=== PATIENT | female | born 1990 | race Two or more races ===

== ENCOUNTER 2016-08-01 02:12 | Emergency (ER) | payer OTHER ==
[2016-08-01 03:15] LABS: ABSOLUTE NEUTROPHIL COUNT 7.2 K/mm3 (1.8-7.7); BASO # 0.1 K/mm3 (0.0-0.2); BASO % 0.5 % (0.2-1.0); EOS # 0.4 (0.0-0.5); EOS % 3.5 % (0.9-2.9); HEMATOCRIT 41.9 % (37.0-47.0); HEMOGLOBIN 13.4 gm/l (12.0-16.0); IMM NEUT% 0.3 % (0-1); LYMPH # 2.6 (1.0-4.8); LYMPH % 23.6 % (15-45); MEAN CELL VOLUME 95.4 fl (81.0-99.0); MEAN CORPUSCULAR HEMOGLOBIN 30.5 pg (27.0-31.0); MEAN PLATELET VOLUME 11.6 fl (7.4-10.4); MONO # 0.8 (0.0-0.8); MONO % 6.9 % (4-12); NEUT % 65.2 % (43-75); PLATELET COUNT 272 K/mm3 (130-400); RED CELL DISTRIBUTION WIDTH 12.8 % (11.5-14.5)
[2016-08-01 03:16] LABS: URINE BILIRUBIN NEGATIVE (NEGATIVE); URINE BLOOD NEGATIVE (NEGATIVE); URINE GLUCOSE (UA) NEGATIVE (NEGATIVE); URINE LEUKOCYTE ESTERASE 1+ (NEGATIVE); URINE NITRITE NEGATIVE (NEGATIVE); URINE PROTEIN NEGATIVE (NEGATIVE); URINE UROBILINOGEN NORMAL (0-1 mg/dl)
[2016-08-01 03:18] LABS: URINE APPEARANCE HAZY; URINE COLOR LIGHT YELLOW
[2016-08-01 03:26] LABS: HCG,QUALITATIVE URINE NEGATIVE
[2016-08-01 03:28] LABS: ALB/GLOB RATIO 1.2 (>1.0); ALBUMIN 4.2 gm/dL (3.5-5.7); CALCIUM 9.5 mg/dL (8.6-10.3)
[2016-08-01] MEDS ORDERED: ONDANSETRON 4 MG/2ML 2 ML VIAL ONE (03:30)
[2016-08-01 03:31] LABS: URINE BACTERIA RARE; URINE RBC 0-1 /hpf
[2016-08-01] MEDS ORDERED: HYDROMORPHONE HCL 1 MG/ML SYRINGE ONE (03:31)
--- NOTE | 2016-08-01 07:47 | US ---
LIMITED ABDOMINAL ULTRASOUND HISTORY: Right upper quadrant pain. Limited sonography of the right upper quadrant performed. Correlation against 07/14/2016 FINDINGS: GALLBLADDER LENGTH: 12.8 cm. GALLBLADDER WALL THICKNESS: 2.5 mm. GALLBLADDER CONTENT: Multiple mobile gallstones measuring up to 1.4 cm in size. SONOGRAPHIC WISE'S SIGN: Not elicited. COMMON BILE DUCT CALIBER: 3.9 mm. REGIONAL FREE FLUID: None. IMPRESSION: Distended gallbladder with features of cholelithiasis. No wall thickening, biliary dilatation, or free fluid noted. Preliminary report relayed to the Emergency Medicine medical service by Dr. Luna on 08/01/2016 at 0424 hours.
== END 2016-08-01 05:43 | disposition home or self-care (01) ==
LOC: ED 02:12
DX: K80.20 Calculus of gallbladder without cholecystitis without obstruction (principal)
CPT/HCPCS: 83690; 81025; 85025; 87086; 80053; 81001; 76705; 96375; 99283 ×2; 96374; J1170; J2405

== ENCOUNTER 2016-08-30 07:35 | Day surgery (SDC) | payer MEDICAID, OTHER ==
[2016-08-30] MEDS ORDERED: LACTATED RINGERS 1,000 ML ONE ×2 (07:54→12:59)
[2016-08-30] MEDS ORDERED: IV START KIT ONE (07:54)
[2016-08-30] MEDS ORDERED: METRONIDAZOLE 500 MG/NS 100 ML 500 MG in Premix (NS) 100 ml 1 EACH IV PRN (08:36)
[2016-08-30] MEDS ORDERED: LACTATED RINGERS 1,000 ML IV SCH ×3 (08:36→12:32)
[2016-08-30] MEDS ORDERED: LIDOCAINE 1% 2 ML VIAL ID PRN (08:36)
[2016-08-30] MEDS ORDERED: CEFUROXIME SODIUM 1.5 GRAM 1.5 G in Premix (Water) 50 ml 1 EACH IV PRN (08:36)
[2016-08-30] MEDS ORDERED: CEFUROXIME SODIUM 1.5 GRAM 50 ML IV ONE (09:15)
[2016-08-30] MEDS ORDERED: METRONIDAZOLE 500 MG/NS 100 ML 100 ML IV ONE (09:17)
[2016-08-30 09:44] LABS: ALB/GLOB RATIO 1.3 (>1.0); ALBUMIN 3.8 gm/dL (3.5-5.7); CALCIUM 8.7 mg/dL (8.6-10.3)
[2016-08-30] MEDS ORDERED: LIDOCAINE 1%/EPI 1:100,000 (MULTI DOSE) 30 ML VIAL ONE (10:21)
[2016-08-30] MEDS ORDERED: FENTANYL 100 MCG/2 ML VIAL ONE (10:25)
[2016-08-30] MEDS ORDERED: ONDANSETRON 4 MG/2ML 2 ML VIAL ONE (10:34)
[2016-08-30] MEDS ORDERED: PROPOFOL 20 ML IV ONE (10:34)
[2016-08-30] MEDS ORDERED: HYDROMORPHONE HCL 2 MG/ML SYRINGE ONE ×2 (10:34→10:35)
[2016-08-30] MEDS ORDERED: ROCURONIUM BROMIDE 10 MG/ML DOSE IV ONE (10:34)
[2016-08-30] MEDS ORDERED: METOCLOPRAMIDE HCL 5 MG/ML 2ML VIAL ONE (10:34)
[2016-08-30] MEDS ORDERED: ATROPINE SULFATE 0.4 MG/1 ML VIAL IV PRN (10:54)
[2016-08-30] MEDS ORDERED: MORPHINE SULFATE 4 MG/ML SYRINGE IV PRN (10:54)
[2016-08-30] MEDS ORDERED: NALOXONE HCL 0.4 MG/ML VIAL IV PRN (10:54)
[2016-08-30] MEDS ORDERED: LABETALOL HCL 5 MG/ML 20ML VIAL IV PRN (10:54)
[2016-08-30] MEDS ORDERED: PROMETHAZINE HCL 25 MG/ML VIAL IM PRN (10:54)
[2016-08-30] MEDS ORDERED: ONDANSETRON 4 MG/2ML 2 ML VIAL IV PRN ×2 (10:54→12:32)
[2016-08-30] MEDS ORDERED: MEPERIDINE 25 MG/ML SYRINGE IV PRN (10:54)
[2016-08-30] MEDS ORDERED: KETOROLAC TROMETHAMINE 30 MG/ML 1 ML VIAL ONE (11:37)
--- NOTE | 2016-08-30 11:47 | PCMBPN ---
Brief Post Op Note: Date of Procedure: 08/30/16 Preoperative Diagnosis: 1. Chronic cholecystitis with cholelithiasis Postoperative Diagnosis: 1. Same Procedure: laparoscopic cholecystectomy Surgeon: Zahida Mustafa MD Assist:Beverly Oviedo Anesthesia: GETA Findings: see dictation Condition: stable Complications: none IV Fluids: see anesthesia report Urine Output: not recorded Estimated Blood Loss: 5 mLs Tourniquet Time: N/A Specimens: gallbladder Implants: n/a Drains: [N/A]
[2016-08-30] MEDS ORDERED: PROMETHAZINE HCL 25 MG/ML VIAL ONE (12:05)
[2016-08-30] MEDS ORDERED: OXYCODONE/ACETAMINOPHEN 5/325 MG TABLET PO PRN (12:32)
[2016-08-30] MEDS: HYDROMORPHONE HCL 1 MG/ML SYRINGE IV PRN ×2 (12:37→13:03)
[2016-08-30] MEDS ORDERED: OXYCODONE/ACETAMINOPHEN 5/325 MG TABLET ONE (13:15)
--- NOTE | 2016-08-30 17:51 | OP ---
GLORY ACKERMAN [id number] : 1990 DATE OF PROCEDURE: August 30, 2016 PREOPERATIVE DIAGNOSIS: Chronic cholecystitis with cholelithiasis. POSTOPERATIVE DIAGNOSIS: Chronic cholecystitis with cholelithiasis. PROCEDURE PEFORMED: LAPAROSCOPIC CHOLECYSTECTOMY. SURGEON: Zahida Mustafa M.D. ANESTHESIA: General. SENIOR CLINICAL SAS PROGRAMMER: Albina Tamez FINDINGS: Gallbladder with signs of acute and chronic inflammation. Gallstone stuck in the cystic duct and had to dissect a little below that to get the cystic duct divided below it. TECHNIQUE: The patient was brought back to the operating room and placed under general anesthesia. The abdomen was prepped and draped in sterile surgical fashion. Local anesthetic was placed to the right of the umbilicus and a #15 blade scalpel was used to make a less than 1 cm transverse incision. A 5 mm port with a zero degree scope and insufflation was used to slowly enter the abdomen looking at all the abdominal wall layers as we went. When we entered the abdomen, insufflation pushed the abdominal contents away. There was no damage to organs on entry. We switched to a 30 degree scope and then placed an 11 mm port subxiphoid and two 5 mm ports in the right upper quadrant laterally, all this under direct visualization. I then grasped the gallbladder and pushed it superiorly and then placed another grasper on the neck of the gallbladder and used it for retraction. There were some adhesions that I had to take down and in order to get the neck into good view. I had to decompress the gallbladder with an aspirating needle. Once that was done, the neck came up into better view, and I could see the cystic duct better. I dissected out the cystic artery first. This went right up into the gallbladder. It was right next to the lymph node. Once it was dissected completely around, I was able to get two clips proximally and one distally, and I was able to divide that with EndoShears. I then continued my dissection. I got around the cystic duct and noticed kind of a weird anatomy, a weird fold there and on further investigation, the weird fold was actually because there was a large stone within the first portion of the duct. I decided that rather than leave that stone in the duct, I want to clip more proximal to that so that I would not have that stone continuing in the duct. I continued my dissection closer to the common duct and dissected around it. Once the cystic duct was dissected around, I placed a Hem-o-sarahy and then a regular clip above it. Then I used the scissors to take the cystic duct off right underneath the stone. I did not place a clip on this end as there was a stone blocking the duct anyway and there would not be leakage of bile. I then grasped the gallbladder closer to where the stone was and lifted that up and use my [place] to make sure there were no other structures behind where this was at. There was no other arterial branching, no other structures. It was all cleared off to the liver and I used the hook on the suction district supervisor to remove the gallbladder from the liver bed. A little bit of difficulty as she was heavy and there was not much room, but I was able to remove the gallbladder from the liver bed with just a little bit of oozing. I cleared up the oozing with the electrocautery. Then I placed the gallbladder in the laparoscopic retrieval device. I used the suction district supervisor to clear out the liver bed, make sure everything was dry. I did not see any active oozing or bleeding or bile leakage from the area of the ducts. Once everything was nice and clean, I pulled the gallbladder out of the subxiphoid port site. Once that was done, I used a Ravindra-Romina to close the fascia at the subxiphoid port site. Once I had two stitches in there, it was nice and closed. Then I closed the skin incisions with #4-0 Monocryl. SteriStrips were applied, and the patient was awakened and returned to recovery room in stable condition. All needle, instrument and sponge counts were correct at the end of the case.
--- NOTE | 2016-09-01 13:39 | SURGPATH ---
[facility] [address] [place] [id number] Patient Name: GLORY ACKERMAN MR#: [id number] : 1990 Gender: F Specimen #: [id number] Collected: 08/30/2016 Received: 08/31/2016 Reported: 09/01/2016 Submitting Phys: ANGIE CERRATO Copy To Phys: DAMIAN GARCIA [facility] Clinical History / Pre-Operative Diagnosis: Cholecystitis and cholelithiasis Specimen Source / Surgical Procedure Performed: Gallbladder Interpretation: GALLBLADDER, CHOLECYSTECTOMY: - CHRONIC CHOLECYSTITIS AND CHOLELITHIASIS Electronically Signed Out Henrietta Carrington M.D. Gross Description: The specimen is received in formalin labeled with the patient's name and "gallbladder". The specimen consists of an 8.0 x 3.0 x 3.0 cm partially disrupted gallbladder. The cystic duct is occluded by a stone. There are multiple 0.5-0.8 cm green faceted calculi. There is also a 4.0 x 1.5 x 1.5 cm aggregate of soft yellow material/tissue in the lumen. The mucosa is white-pink and flat. The gallbladder is not calcified. Spar Machine Operator tissue is submitted. A. cystic duct and intraluminal soft tissue/material B.-E. gallbladder MARY Yarbrough Microscopic Description: Sections from the gallbladder show thickened gallbladder wall with transmural chronic inflammation. There are areas of mucosal ulceration and old blood is seen within the gallbladder lumen. Several Rokitansky-Aschoff sinuses are present. There is no neoplasia. 1: [id number] K81.1
== END 2016-08-30 14:16 | disposition home or self-care (01) ==
LOC: SDC 07:35
PROVIDERS: ATTEND Surgery
PROC: 0FT44ZZ Resection of Gallbladder, Percutaneous Endoscopic Approach (ICD-10-PCS; principal; 2016-08-30)
DX: K80.10 Calculus of gallbladder with chronic cholecystitis without obstruction (principal); Z72.0 Tobacco use
CPT/HCPCS: 80053; 36415; 47562; J1170 ×2; J3010; A9270; J2550; J2765; J1885; J2001; J2405; J7120 ×2; J0697